=== PATIENT | female | born 1995 | race Two or more races ===

== ENCOUNTER 2020-07-24 11:22 | Emergency (ER) | payer MEDICAID ==
[2020-07-24 11:46] VITALS: BP 125/79; PULSE 83
--- NOTE | 2020-07-24 11:51 | EDM.PDOC ---
ED HPI GENERAL MEDICAL PROBLEM - General Chief Complaint: ENT Problem Stated Complaint: TOOTH PAIN Time Seen by Provider: 07/24/20 11:44 Source of Information: Reports: Patient - History of Present Illness INITIAL COMMENTS - FREE TEXT/NARRATIVE: Raheem is a 25 y/o female who comes to the ER with a dental infection. She reports that she has had several of these in the last and they seem to clear up. She now reports that she has had swelling and pain in her left upper jaw region for the last 4-5 days. She tried to take a needle and poke the gumline yesterday and got a large amount of purulent drainage. She has not tried to get into the dentist yet, but knows she needs to on Sunday. She is here today for abx. No pain right now. Denies any fevers. - Related Data Allergies Allergy/AdvReac Type Severity Reaction Status Date / Time Penicillins Allergy Other Verified 07/24/20 11:39 Home Meds: Home Meds Clindamycin HCl 300 mg PO TID 10 Days #30 capsule 07/24/20 [Rx] Past Medical History - Past Health History Medical/Surgical History: Denies Medical/Surgical History - Past Surgical History Musculoskeletal Surgical History: Reports: Other (See Below) Review of Systems - Review of Systems Review Of Systems: See Below Constitutional: Reports: No Symptoms Eyes: Reports: No Symptoms Ears: Reports: No Symptoms Nose: Reports: No Symptoms Mouth/Throat: Reports: Pain, Other (gum swelling, purulent drainage) Respiratory: Reports: No Symptoms Cardiovascular: Reports: No Symptoms GI/Abdominal: Reports: No Symptoms Genitourinary: Reports: No Symptoms Musculoskeletal: Reports: No Symptoms Skin: Reports: No Symptoms Neurological: Reports: No Symptoms Psychiatric: Reports: No Symptoms ED EXAM, GENERAL - Physical Exam Exam: See Below Exam Limited By: No Limitations General Appearance: Alert, WD/WN, No Apparent Distress (Adult female) Eye Exam: Bilateral Eye: PERRL Ears: Hearing Grossly Normal Nose: Normal Inspection Throat/Mouth: Normal Lips, Other (note multiple broken and decayed teeth, note teeth #24 and 25 with old fillings and some tenderness and purulent drainage along gumline) Head: Atraumatic Neck: Normal Inspection, Supple Respiratory/Chest: No Respiratory Distress Cardiovascular: Regular Rate, Rhythm GI/Abdominal: Soft (Female) Exam: Deferred Rectal (Female) Exam: Deferred Back Exam: Other (Not examined) Extremities: Other (Not examined) Neurological: Alert, Oriented, CN II-XII Intact, Normal Cognition Psychiatric: Normal Affect, Normal Mood Skin Exam: Warm, Dry, Intact, Normal Color Lymphatic: No Adenopathy Course - Vital Signs Text/Narrative:: 1144 The patient was seen by the [employer]. No labs or diagnostic studies were indicated. Will place patient on Clindamycin since she is allergic to PCN. Questions were answered. She was given discharge instructions and left the ER in stable condi tion after written instructions were given. Departure - Departure Time of Disposition: 11:51 Disposition: Home, Self-Care 01 Condition: Good Clinical Impression: Dental abscess, Dental caries - Discharge Information *PRESCRIPTION DRUG MONITORING PROGRAM REVIEWED*: Not Applicable *COPY OF PRESCRIPTION DRUG MONITORING REPORT IN PATIENT OTILIO: Not Applicable Prescriptions: Clindamycin HCl 300 mg PO TID 10 Days #30 capsule Instructions: Dental Abscess, Preventive Dental Care, Adult - Assessment/Plan Assessment:: 1)Dental Abscess 2)Dental Caries Plan: -Clindamycin 300mg oral 3x daily x 10 days #30(Rx) -Use Ibuprofen 200mg 3 tablets oral every 6 hours and Acetaminophen 325mg 3 tablets oral every 6 hours as needed for pain. (Use over the counter medications) -Taking both over the counter meds together is as effective as using narcotic pain meds -Soft foods and liquids that are not too hot or too cold. -Warm salt water gargles as needed -Get into dental clinic [facility] to be seen. -Return to the ER if further concerns.
== END 2020-07-24 12:10 | disposition home or self-care (01) ==
LOC: VM.ED 11:22
DX: K04.7 Periapical abscess without sinus (principal); K02.9 Dental caries, unspecified; Z88.0 Allergy status to penicillin
CPT/HCPCS: 99282; 99283